=== PATIENT | female | born 1955 | race Caucasian/White ===

== ENCOUNTER 2023-12-22 10:50 | Day surgery (SDC) | payer OTHER, BC ==
[~2023-12-22] VITALS: Ht 160 cm; Wt 77.1 kg
[2023-12-22 14:13] VITALS: O2SAT 97
[2023-12-22] MEDS ORDERED: DEXAMETHASONE SOD PHOSPHATE 4 MG/ML VIAL ONE (14:35)
[2023-12-22] MEDS ORDERED: HYDROmorphone 2 MG/ML VIAL ONE (14:35)
[2023-12-22] MEDS ORDERED: fentaNYL CITRATE/PF 100 MCG/2 ML AMP ONE (14:35)
[2023-12-22] MEDS ORDERED: HYDROmorphone 1 MG/ML INJ. CARTRIDGE IVP PRN (17:30)
[2023-12-22] MEDS ORDERED: KETOROLAC TROMETHAMINE 30 MG VIAL IVP PRN (17:30)
[2023-12-22] MEDS ORDERED: HYDROmorphone 2 MG/ML VIAL IVP PRN (17:30)
[2023-12-22] MEDS ORDERED: LR 1,000 ML IV SCH (17:30)
[2023-12-22 19:16] VITALS: BP_SYST 162; PULSE 86; RESP 18
== END 2023-12-22 17:10 | disposition home or self-care (01) ==
LOC: SDS 10:50 → SMU 11:21 → SDS 17:10
PROVIDERS: ATTEND Otolaryngology
DX: D38.5 Neoplasm of uncertain behavior of other respiratory organs (principal); J34.89 Other specified disorders of nose and nasal sinuses; J34.2 Deviated nasal septum; J32.9 Chronic sinusitis, unspecified; I10 Essential (primary) hypertension; Z87.891 Personal history of nicotine dependence; Z83.3 Family history of diabetes mellitus
CPT/HCPCS: 31288; 30520; 30140; 88304; 88305; 88311; 31267; 31296; J3490 ×2; J1100; J0171; J1885; J2765; J3465; J2704; J3010; J1170; J7120; C1726